=== PATIENT | male | born 1990 | race Caucasian/White ===

== ENCOUNTER 2016-10-26 10:09 | Emergency (ER) | payer SELFPAY ==
[~2016-10-26] VITALS: Ht 172.7 cm; Wt 68.0 kg
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
[2016-10-26 10:19] VITALS: Ht 172.7 cm; Wt 68.0 kg
== END 2016-10-26 11:35 | disposition left against medical advice (07) ==
LOC: FTE 10:09
DX: Z53.21 Procedure and treatment not carried out due to patient leaving prior to being seen by health care provider (principal)